=== PATIENT | female | born 1950 | race Caucasian/White ===

== ENCOUNTER 2018-11-24 11:55 | Emergency (ER) | payer MEDICARE, MEDICAID, SELFPAY ==
[2018-11-24 11:56] VITALS: BP 215/123; PULSE 87; RESP 15; TEMP 36.8; O2SAT 99; BMI 26.1
--- NOTE | 2018-11-24 12:37 | EKG12_ITS ---
Test Reason : HYPERTENSION Blood Pressure : / mmHG Vent. Rate : 087 BPM Atrial Rate : 087 BPM P-R Int : 178 ms QRS Dur : 082 ms QT Int : 386 ms P-R-T Axes : 061 -24 054 degrees QTc Int : 464 ms Normal sinus rhythm Possible Left atrial enlargement Borderline ECG Confirmed by STEFFEN NEW, NEELA ([id number]), greeting card editor DIANE BROCK ([id number]) on 11/26/2018 9:20:37 AM Referred By: ALISON Confirmed By:NEELA BOURNE MD
--- NOTE | 2018-11-24 12:37 | RAD_ITS ---
STUDY: X-RAY CHEST REASON FOR EXAM: Female, 68 years old. Hypertension TECHNIQUE: PA and lateral views of the chest. COMPARISON: None. FINDINGS: The lungs are clear and expanded. There is no demonstrated pleural abnormality. Normal size heart. Normal mediastinum and jemal. Normal visualized pulmonary arteries. There is atherosclerotic calcification of the aortic arch with tortuosity. There are diffuse degenerative changes of the visualized thoracic spine. Calcification adjacent to the humeral head may represent calcific tendinitis. There is no demonstrated abnormality of the visualized soft tissue structures of the upper abdomen. RAD/Chest PA and Lateral IMPRESSION: No acute cardiopulmonary process. Chronic changes, as above. Electronically Signed: Oscar Abdi MD at 13:14 EST , Service support ,
--- NOTE | 2018-11-24 12:39 | ED.VISSUMM ---
- ER Visit Summary Date of Service: 11/24/18 Chief Complaint: Hypertension History of Present Illness: The patient is a 68 F who presents with elevated blood pressures that have been getting worse over the past couple days. Patient states she has been checking her blood pressures at home and they have been running in the 160s-180s systolic and 100s-110s diastolic. Patient denies any symptoms. Patient states she has been taking her lisinopril as prescribed. Physical Examination: Vital signs are stable. Patient is afebrile. Patient is in no acute distress. Oral mucosa is pink and moist. Neck is supple. Trachea is midline. There is no JVD noted. Heart was regular rate and rhythm. Lungs are clear and equal bilateral. Abdomen is soft. Bowel sounds are normal. There is no tenderness. There is no guarding noted. Skin is warm dry. Cranial nerves II through XII are intact. There are no focal motor or sensory deficits noted. The remaining physical exam is within normal limits. Test Results: CBC, basic metabolic profile, and troponin were all normal. PA and lateral chest x-ray was obtained. There are chronic changes but no acute process. Emergency Department Course and Treatment: She was given a dose of clonidine here. Repeat blood pressure is 131/85. Patient felt better on reevaluation. Patient was instructed to follow-up with her primary care physician in 1-2 days. Patient understood and was agreeable with plan. All questions were answered. Disposition: Discharge home Impression: Hypertension This note was generated with SeeSpace dictation software. It may contain incorrect words, spelling, and punctuation that were not noted in review of the chart prior to signing ED Disposition - Plan for ED Patient: Disposition: Home or Assisted Living Diagnosis: Hypertension Instructions: ED Hypertension Conf Out Of Control Referrals: Cal Will MD [Primary Care Provider] -
[2018-11-24] MEDS: cloNIDine HCl 0.2 MG Tablet PO (12:55)
[2018-11-24 13:14] LABS: Absolute Lymphocyte Count 1.97 X10^3/ul (0.83-4.51); Basophil# 0.05 X10^3/uL; Basophil% 0.7 % (0-1); Eosinophil# 0.25 X10^3/uL; Eosinophils% 3.3 % (0-5); Hemoglobin 14.1 g/dl (12.0-15.0); Lymphocyte # 1.97 X10^3/ul (4.0); Lymphocyte % 25.9 % (19-41); Mean Corp Hgb Conc 33.6 g/gl (32-36); Mean Corpuscular Hgb 30.7 pg (27.0-32.0); Mean Corpuscular Volume 91.3 fL (81-99); Mean Platelet Vol. 8.9 fl (6.2-12.0); Monocyte# 0.34 X10^3/uL; Monocyte% 4.5 % (0-10); Neutrophil # 4.98 X10^3/uL (2.7-7.7); Neutrophil % 65.5 % (47-70); Platelet Count 350 K/mm3 (150-450); RBC Distribution Width CV 14.2 % (11.6-14.6); RBC Distribution Width SD 47.4 fl (35.1-43.9); White Blood Count 7.6 K/mm3 (4.4-11.0)
[2018-11-24 13:16] LABS: POSITIVE COUNT NO; POSITIVE DIFFERENTIAL NO; POSITIVE MORPHOLOGY NO
[2018-11-24 13:32] LABS: Anion Gap 8 (5-15); BUN 11 mg/dL (7-18); BUN/Creat Ratio 14.5 RATIO (10-20); Chloride 106 mmol/L (98-107); Creatinine, Serum 0.76 mg/dL (0.55-1.02); EST Glomerular Filtration Rate 81 mL/min (>60); Est Glom Filt Rate - Afr Amer 98 mL/min (>60); Estimated Creatinine Clearance 49.12 ml/min; Glucose 122 mg/dL (74-106); Potassium 3.4 mmol/L (3.5-5.1); Sodium Level 136 mmol/L (136-145)
[2018-11-24 14:06] VITALS: BP 131/85; PULSE 72; RESP 18; O2SAT 97
[2018-11-24 14:29] VITALS: BP 120/70; PULSE 74; RESP 18; O2SAT 98
== END 2018-11-24 14:30 | disposition home or self-care (01) ==
PROVIDERS: Emergency Provider Emergency Medicine; Family Provider Family Medicine; PCP Family Medicine
DX: I10 Essential (primary) hypertension (principal); E78.00 Pure hypercholesterolemia, unspecified; F17.210 Nicotine dependence, cigarettes, uncomplicated
CPT/HCPCS: 71046; 80048; 84484; 85025; 93005; 99284; A4216

== ENCOUNTER 2020-01-18 15:39 | Inpatient (IN) | payer MEDICARE, MEDICAID, SELFPAY ==
[2020-01-18] VITALS (8 sets, daily range): BP systolic 146–178; BP diastolic 82–97; PULSE 87–109; RESP 16–18; TEMP 36.1–37.1; O2SAT 96–99; BMI 24.7; BMI 24.1
--- NOTE | 2020-01-18 15:55 | EKG12_ITS ---
Test Reason : Blood Pressure : / mmHG Vent. Rate : 092 BPM Atrial Rate : 092 BPM P-R Int : 188 ms QRS Dur : 090 ms QT Int : 378 ms P-R-T Axes : 071 -28 060 degrees QTc Int : 467 ms Normal sinus rhythm Nonspecific ST abnormality Abnormal ECG Confirmed by STEFFEN NEW, NEELA ([id number]), mapping editor DIANE BROCK ([id number]) on 01/19/2020 8:25:42 AM Referred By: JENNYFER Confirmed By:NEELA BOURNE MD
[2020-01-18] MEDS: 0.9% Normal Saline 1,000 ML 125 ML IV (16:16)
[2020-01-18] MEDS: Ondansetron 4 MG/2 ML Vial IV (16:16)
[2020-01-18 16:18] LABS: Absolute Lymphocyte Count 1.69 X10^3/uL (0.83-4.51); Absolute Neutrophil Count 5.1 X10^3/uL (2.0-7.7); Basophil# 0.05 X10^3/uL; Basophil% 0.7 % (0-1); Eosinophil# 0.14 X10^3/uL; Eosinophils% 1.8 % (0-5); Hematocrit 36.5 % (37-47); Hemoglobin 12.9 g/dL (12.0-15.0); Lymphocyte # 1.69 X10^3/ul (4.0); Lymphocyte % 22.2 % (19-41); Mean Corp Hgb Conc 35.3 g/dL (32-36); Mean Corpuscular Hgb 29.7 pg (27.0-32.0); Mean Corpuscular Volume 84.1 fL (81-99); Mean Platelet Vol. 7.8 fl (6.2-12.0); Monocyte# 0.58 X10^3/uL; Monocyte% 7.6 % (0-10); NRBC Flagged by Analyzer 0 % (0-5); Neutrophil # 5.13 X10^3/uL (2.7-7.7); Neutrophil % 67.4 % (47-70); Platelet Count 404 K/mm3 (150-450); RBC Distribution Width CV 12.8 % (11.6-14.6); RBC Distribution Width SD 39.3 fl (35.1-43.9); Red Blood Count 4.34 M/mm3 (4.2-5.4); White Blood Count 7.6 K/mm3 (4.4-11.0)
[2020-01-18 16:26] LABS: Bacteria 0 SEEN /hpf (None Seen); Mucous, Urine 0 SEEN /hpf (<or=2+); Squamous Epithelial Cells - UA 0 SEEN /hpf (5-10); White Blood Cells 0 SEEN /hpf (0-5)
[2020-01-18 16:27] LABS: Color, Urine Yellow (Yellow); Glucose, Dipstick Normal (Normal); Ketone-Dipstick Negative (Negative); Leukocyte Esterase-Dipstick Negative /ul (Negative); Nitrite-Dipstick Negative (Negative); Occult Blood-Urine 10 /ul (Negative); Protein-Dipstick Negative (Negative); Urine Bilirubin Dipstick Negative (Negative); Urine Clarity Clear (Clear); Urine Urobilinogen Normal (Normal)
[2020-01-18 16:33] LABS: Red Blood Cells-Urine 0-5 SEEN /hpf (0-5)
[2020-01-18 16:47] LABS: ALB/GLOB Ratio 1.1 RATIO (0.9-2.4); AST(SGOT) 23 U/L (15-37); Alanine Aminotransfer ALT/SGPT 28 U/L (13-56); Albumin, Serum 4.1 g/dL (3.2-5.0); Alkaline Phosphatase 96 U/L (45-117); Anion Gap 10 (5-15); BUN 11 mg/dL (7-18); BUN/Creat Ratio 13.7 RATIO (10-20); Calcium,Total 9.1 mg/dL (8.5-10.1); Chloride 85 mmol/L (98-107); EST Glomerular Filtration Rate 75 mL/min (>60); Est Glom Filt Rate - Afr Amer 91 mL/min (>60); Estimated Creatinine Clearance 63.01 ml/min; Globulin 3.8 g/dL (2.2-4.2); Glucose 110 mg/dL (74-106); Lipase 292 U/L (73-393); Protein, Total 7.9 g/dL (6.4-8.2); Sodium Level 119 mmol/L (136-145)
--- NOTE | 2020-01-18 17:02 | ED.DCSUM_ITS ---
- ER Visit Summary Date of Service: 01/18/20 Chief Complaint: [Nausea, generalized weakness] History of Present Illness: The patient is a 69 F [presents to the emergency department with complaint of not feeling well for about a week. Patient states that she was having a hard time urinating about a week and a half ago and went to urgent care where they checked a urine and initially they did not think she was infected but then called her back and started her on Cipro for suspected urinary tract infection. Patient states that she took about 5 days worth of Cipro. Since the Cipro started she has been nauseated and having heartburn. She denies any abdominal pain. She states she intermittently will have a sharp stabbing pain kind of in the right lower ribs that she attributes to muscle cramping. She denies any urinary symptoms currently. She denies any fever. She denies cough. Patient has history of hypertension. Patient states that she was started on hydrochlorothiazide about 2 months ago.] Physical Examination: [HEENT-PERRLA, EOMI. Cranial nerves II through XII g rossly intact. TMs clear. Mucous membranes moist. No adenopathy. Cardiovascular-regular rate and rhythm without murmur or ectopy Lungs-clear to auscultation, chest wall stable without crepitus or subcu emphysema Abdomen-normoactive bowel sounds, soft, nontender, no rebound or rigidity, no peritoneal signs. Extremities-intact ?4, normal range of motion, normal pulses, atraumatic] Test Results: [EKG obtained arrival shows sinus rhythm with a ventricular rate of 92 bpm with some nonspecific ST changes noted. CBC with differential showed a white count 7.6, hemoglobin 12.9, hematocrit 36, platelets 404. Chemistries showed a sodium of 119, potassium 3.0, chloride 85, CO2 24, glucose 110. LFTs were normal. Lipase was 292. Troponin was less than 0.015.] Emergency Department Course and Treatment: [Patient had an IV line established. She was treated with normal saline at 125 cc an hour. Patient was given 40 mEq of potassium chloride p.o.] Patient given 4 mg of Zofran IV. Treatment Plan: [Admit for correction of sodium] Disposition: [Admit] Impression: [Hyponatremia Hypokalemia Generalized weakness Nausea] This note was generated with Nimble TVation software. It may contain incorrect words, spelling, and punctuation that were not noted in review of the chart prior to signing ED Disposition - Plan for ED Patient: Referrals: Cal Will MD [Primary Care Provider] -
--- NOTE | 2020-01-18 17:34 | HP.PCM_ITS ---
Problem List (1) Hypokalemia Status: Acute (2) Hyponatremia Status: Acute (3) Hyperlipidemia Status: Chronic (4) Hypertension Status: Chronic History of Present Illness Date of Admission: 01/18/20 Chief Complaint: Nausea, weakness. The patient is a 69 year old F with past medical history as mentioned above presented to the emergency room because of nausea and weakness. Redness started around 1 week ago with nausea, intermittent, without vomiting, associated with weakness and minimal heartburn and without aggravating or relieving factors. Around that time, she had a history of difficulty urinating and she went to urgent care where she had urinalysis and she was given prescription for ciprofloxacin for presumed UTI. She took ciprofloxacin for 5 days and since then, she has been having this nausea and heartburn. She denied abdominal pain, diarrhea, constipation, fever or chills. She denied any urinary symptoms at this time. She denied cough or sputum production. She denied chest pain or shortness of breath. She mentioned that around beginning of November,, her dose of hydrochlorothiazide was increased from 12.5 mg p.o. daily to 25 mg p.o. daily because of elevated blood pressure. She states that she has been taking HCTZ for long time but the dose was increased around beginning of November this year. In the emergency department, her blood pressure was slight elevated, other vital signs were stable. Routine blood work was remarkable for sodium of 119 and potassium of 3, otherwise normal. Lipase and LFT were normal. EKG revealed normal sinus rhythm with nonspecific ST, T wave changes which are chronic and no acute ischemic changes. Troponin was negative. She is being admitted for severe hyponatremia and hypokalemia for evaluation and treatment. 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 Denies: Chills, Fever Eyes: Denies: Blurred vision, Double vision, Drainage, Redness HEENT: Denies: Difficulty Hearing, Ear Pain, Eye Pain, Nasal Congestion, Sore Throat Cardiovascular: Denies: Chest Pain, Chest Pressure, Chest Tightness, Heaviness, Light Headedness, Palpitations, Syncope Respiratory: Denies: Cough, Pleuritic Pain, Shortness of Breath, Sputum production, Wheezing Gastrointestinal: Reports: Dyspepsia, Nausea. Denies: Abdominal Pain, Constipation, Diarrhea, Hematochezia, Melena, Vomiting Genitourinary: Denies: Dysuria, Frequency, Hematuria Musculoskeletal: Denies: Arm Pain, Back Pain, Foot Pain Skin: Denies: Dryness, Rash Neurological: Denies: Balance problems, Double vision, Change in Speech, Slurred speech, Headaches, Incoordination, Numbness, Tingling Psychiatric: Denies: Anxiety, Depression Endocrine: Denies: Change in Body Habitus, Polydipsia, Polyuria VTE Information - Inpt Only VTE Present on Admission: No VTE Mechan Device Prophylaxis: None VTE Pharm Prophylaxis ordered?: Yes Patient Problems: Active and Suspected Problems Hypokalemia (Acute) Hyponatremia (Acute) - Physical Exam Vitals/I&O's: Vital Signs Temp Pulse Resp BP Pulse Ox 97.0 F L 103 H 18 157/97 H 97 01/18/20 15:40 01/18/20 15:40 01/18/20 15:40 01/18/20 15:40 01/18/20 15:40 Oxygen Delivery Method Room Air Weight: 153 lb 3.54 oz Body Mass Index (BMI) 24.7 General: Alert, Oriented x3, Cooperative, No apparent distress HEENT: Atraumatic, PERRLA, EOMI, Normocephalic Oral: Moist Mucosa, No Gingival or Mucosal Lesions/ Ulcerations Neck: Supple, No JVD, Negative Carotid Bruits, Trachea Midline, Thyroid Normal Size and Texture Lungs: Clear to auscultation, Normal air movement, No rhonchi, No wheeze, No rales Cardiovascular: Regular rate, Regular Rhythm, Normal S1, Normal S2, No murmurs, PMI Normal Abdomen: Bowel Sounds Present, Soft, Non Tender, Non-Distended, No Hepato- splenomegaly Extremities: No clubbing, No cyanosis, No edema Skin: No rashes, No breakdown Lymphatic: No Cervical, Supraclavicular, or Inguinal Adenopathy Neurological: Cranial nerves II-XII grossly intact, Motor Exam 5/5 strength throughout Psych/Mental Status: Normal Affect, Appropriate, Alert and oriented to time, place, person, mood and affect Laboratory Results 01/18/20 14:10: WBC 7.6, RBC 4.34, Hgb 12.9, Hct 36.5 L, MCV 84.1, MCH 29.7, MCHC 35.3, RDW Std Deviation 39.3, RDW Coeff of Abhilash 12.8, Plt Count 404, MPV 7.8, Immature Gran % (Auto) 0.300, Neut % (Auto) 67.4, Lymph % (Auto) 22.2, [place] % (Auto) 7.6, Eos % (Auto) 1.8, Baso % (Auto) 0.7, Absolute Neuts (auto) 5.1, Absolute Lymphs (auto) 1.69, Nucleated RBC % 0 01/18/20 14:10: Sodium 119 L*, Potassium 3.0 L, Chloride 85 L, Carbon Dioxide 24.0, Anion Gap 10, BUN 11, Creatinine 0.80, Estim Creat Clear Calc 63.01, Est GFR (MDRD) Af Amer 91, Est GFR (MDRD) Non-Af 75, BUN/Creatinine Ratio 13.7, Glucose 110 H, Calcium 9.1, Total Bilirubin 0.30, AST 23, ALT 28, Alkaline Phosphatase 96, Troponin I < 0.015, Total Protein 7.9, Albumin 4.1, Globulin 3.8, Albumin/Globulin Ratio 1.1, Lipase 292 01/18/20 16:00: Urine Color Yellow, Urine Clarity Clear, Urine pH 7.0, Ur Specific [place] 1.010, Urine Protein Negative, Urine Glucose (UA) Normal, Urine Ketones Negative, Urine Occult Blood 10 H, Urine Nitrite Negative, Urine Bilirubin Negative, Urine Urobilinogen Normal, Ur Leukocyte Esterase Negative, Urine RBC 0-5 SEEN, Urine WBC 0 SEEN, Ur Squamous Epith Cells 0 SEEN, Urine Bacteria 0 SEEN, Urine Mucus 0 SEEN Current Medications Sodium Chloride () 1,000 mls @ 125 mls/hr IV .Q8H KRISTYN Last Admin: 01/18/20 16:16 Dose: 125 mls/hr Documented by: Assessment/Plan All Active Problems Hypokalemia (Acute) Hyponatremia (Acute) This is a 69 years old female patient presented to the emergency room because of nausea with weakness and she was found to have severe hyponatremia and hypokalemia and she is being admitted for evaluation and treatment. #1 severe hyponatremia/hypokalemia: Patient has been on HCTZ 12.5 mg p.o. daily which was increased to 25 mg p.o. daily beginning November,. This is probably the reason why she had this severe hyponatremia and hypokalemia. Other etiology cannot be ruled out But less likely. LFT and lipase were normal. Patient looks clinically euvolemic. [facility]metry, IV fluids with normal saline with potassium supplement, IV antiemetics, IV Protonix twice daily, check serum magnesium, TSH, chest x-ray AP and lateral as patient is a chronic smoker, urine sodium, urine potassium, urine chloride, urine creatinine, plasma and serum osmolality, hold HCTZ, repeat CBC and BMP tomorrow morning. #2 hypertension: Blood pressures like elevated, continue lisinopril, start IV hydralazine PRN, discontinue HCTZ. #3 hyperlipidemia: Continue statins. #4 DVT prophylaxis: Subcu Lovenox. This note was generated with Anpro21 dictation software. It may contain incorrect words, spelling, and punctuation that were not noted in checking the note before signing. Inpatient E&M: 88818 Init Hosp L2
[2020-01-18 18:30] LABS: Magnesium 1.8 mg/dL (1.6-2.6); Thyroid Stim Hormone (TSH) 3.77 uIU/mL (0.358-3.74)
[2020-01-18] MEDS: 0.9% Saline Lock 10 ML Syringe IV (18:39)
--- NOTE | 2020-01-18 18:55 | RAD_ITS ---
STUDY: X-RAY CHEST REASON FOR EXAM: Female, 69 years old. Hyponatremia, smoker TECHNIQUE: PA and lateral views of the chest. COMPARISON: November 24, 2018 FINDINGS: The lungs remain hyperinflated. There is a stable nodularity projecting over the left midlung with a radiolucent margin, likely dermal in nature. There is no new focal consolidation. Normal size heart. Normal mediastinum and jemal. Normal visualized pulmonary arteries. Normal visualized aortic arch and descending thoracic aorta. There are diffuse degenerative changes of the visualized thoracic spine. Normal visualized ribs, clavicles, and shoulders. There is no demonstrated abnormality of the visualized soft tissue structures of the upper abdomen. RAD/Chest PA and Lateral IMPRESSION: Stable examination demonstrating no acute cardiopulmonary process. Electronically Signed: Milady Fuentes MD at 19:16 EDT Tel , Service support ,
[2020-01-18 19:18] LABS: Osmolality, Serum 248 mOsm/KG (280-301)
[2020-01-18] MEDS: Pravastatin 40 MG Tablet PO (20:20)
[2020-01-18 20:42] LABS: Urine Chloride 66 mmol/L (Not Establ.); Urine Sodium 60 mmol/L (Not Establ.)
[2020-01-18 20:54] LABS: Osmolality, Urine 242 mOsm/KG
[2020-01-19] VITALS (7 sets, daily range): BP systolic 122–155; BP diastolic 62–90; PULSE 82–95; RESP 16–18; TEMP 36.8–36.9; O2SAT 97–99
[2020-01-19 07:10] LABS: Absolute Lymphocyte Count 1.02 X10^3/uL (0.83-4.51); Basophil# 0.05 X10^3/uL; Basophil% 0.8 % (0-1); Eosinophil# 0.07 X10^3/uL; Eosinophils% 1.1 % (0-5); Hematocrit 35.4 % (37-47); Hemoglobin 12.3 g/dL (12.0-15.0); Lymphocyte # 1.02 X10^3/ul (4.0); Lymphocyte % 15.6 % (19-41); Mean Corp Hgb Conc 34.7 g/dL (32-36); Mean Corpuscular Hgb 30.2 pg (27.0-32.0); Mean Platelet Vol. 8.1 fl (6.2-12.0); Monocyte% 6.1 % (0-10); NRBC Flagged by Analyzer 0 % (0-5); Neutrophil # 4.97 X10^3/uL (2.7-7.7); Neutrophil % 75.9 % (47-70); Platelet Count 429 K/mm3 (150-450); RBC Distribution Width SD 40.9 fl (35.1-43.9); Red Blood Count 4.07 M/mm3 (4.2-5.4); White Blood Count 6.5 K/mm3 (4.4-11.0)
[2020-01-19 07:29] LABS: Anion Gap 8 (5-15); BUN 7 mg/dL (7-18); BUN/Creat Ratio 10.8 RATIO (10-20); Calcium,Total 8.7 mg/dL (8.5-10.1); Chloride 97 mmol/L (98-107); Creatinine, Serum 0.65 mg/dL (0.55-1.02); EST Glomerular Filtration Rate 97 mL/min (>60); Est Glom Filt Rate - Afr Amer 117 mL/min (>60); Estimated Creatinine Clearance 50.41 ml/min; Glucose 104 mg/dL (74-106); Potassium 3.8 mmol/L (3.5-5.1); Sodium Level 127 mmol/L (136-145)
[2020-01-19] MEDS: Lisinopril 40 MG Tablet PO (08:38)
[2020-01-19 08:53] LABS: Free T3 2.8 pg/mL (2.18-3.98)
[2020-01-19] MEDS: Pantoprazole Sodium 40 MG Tablet PO ×2 (10:00→20:27)
--- NOTE | 2020-01-19 11:31 | CASEMGMT ---
Assessment- SW completed bedside assessment with patient. SW did confirm contact information as well as her contact that is listed. She does not want anyone else listed. Living situation- Patient lives with her brother in a 1 story home. PCP: Dr Will Specialists: None Pharmacy: [facility] DME: None ADL's/IADL's: Independent in everything. Patient said she manages her meds, bathes herself, drives etc. Past SNF/rehab: None Past HH: None LW: No POA: No Plan: Patient said she will not need anything at discharge. She wishes she could leave today. 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
[2020-01-19] MEDS: 0.9% Saline Lock 10 ML Syringe IV (11:52)
--- NOTE | 2020-01-19 12:44 | PCM.PN.HOSP ---
Patient Problems: Active and Suspected Problems Hypokalemia (Acute) Hyponatremia (Acute) Reason for Visit: Follow-up on hyponatremia Subjective: Patient seen and examined. She feels improved. Denies any complains. Vitals/I&O's: Vital Signs Temp Pulse Resp BP Pulse Ox 98.2 F 82 18 145/77 H 97 01/19/20 09:58 01/19/20 09:58 01/19/20 09:58 01/19/20 09:58 01/19/20 09:58 Oxygen Delivery Method Room Air Weight: 67.8 kg Body Mass Index (BMI) 24.1 Intake and Output for Last 24 Hours 01/17/20 01/18/20 01/19/20 23:59 23:59 23:59 Intake Total 376.67 / 376.67 1496.67 / 1496.67 Output Total 1900 / 1900 Balance 376.67 / -523.33 -403.33 / -403.33 General: Alert, Oriented x3, Cooperative, No apparent distress HEENT: Atraumatic, PERRLA, EOMI, Normocephalic Oral: Moist Mucosa Neck: Supple Lungs: Clear to auscultation, Normal air movement Cardiovascular: Regular rate, Regular Rhythm, Normal S1, Normal S2, No murmurs Abdomen: Bowel Sounds Present, Soft, Non Tender, Non-Distended, No Hepato-splenomegaly Extremities: No edema Skin: No rashes Musculoskeletal: No Tenderness to Palpation of Joints or Extremities Lymphatic: No Cervical, Supraclavicular, or Inguinal Adenopathy Neurological: Cranial nerves II-XII grossly intact, Neuro grossly intact Psych/Mental Status: Normal Affect, Appropriate Laboratory Results 01/18/20 14:10: WBC 7.6, RBC 4.34, Hgb 12.9, Hct 36.5 L, MCV 84.1, MCH 29.7, MCHC 35.3, RDW Std Deviation 39.3, RDW Coeff of Abhilash 12.8, Plt Count 404, MPV 7.8, Immature Gran % (Auto) 0.300, Neut % (Auto) 67.4, Lymph % (Auto) 22.2, [place] % (Auto) 7.6, Eos % (Auto) 1.8, Baso % (Auto) 0.7, Absolute Neuts (auto) 5.1, Absolute Lymphs (auto) 1.69, Nucleated RBC % 0 01/18/20 14:10: Sodium 119 L*, Potassium 3.0 L, Chloride 85 L, Carbon Dioxide 24.0, Anion Gap 10, BUN 11, Creatinine 0.80, Estim Creat Clear Calc 63.01, Est GFR (MDRD) Af Amer 91, Est GFR (MDRD) Non-Af 75, BUN/Creatinine Ratio 13.7, Glucose 110 H, Calcium 9.1, Total Bilirubin 0.30, AST 23, ALT 28, Alkaline Phosphatase 96, Troponin I < 0.015, Total Protein 7.9, Albumin 4.1, Globulin 3.8, Albumin/Globulin Ratio 1.1, Lipase 292 01/18/20 14:10: Magnesium 1.8, TSH 3.77 H 01/18/20 16:00: Urine Color Yellow, Urine Clarity Clear, Urine pH 7.0, Ur Specific [place] 1.010, Urine Protein Negative, Urine Glucose (UA) Normal, Urine Ketones Negative, Urine Occult Blood 10 H, Urine Nitrite Negative, Urine Bilirubin Negative, Urine Urobilinogen Normal, Ur Leukocyte Esterase Negative, Urine RBC 0-5 SEEN, Urine WBC 0 SEEN, Ur Squamous Epith Cells 0 SEEN, Urine Bacteria 0 SEEN, Urine Mucus 0 SEEN 01/18/20 16:33: Serum Osmolality 248 L 01/18/20 20:00: Urine Osmolality 242, Ur Random Sodium 60, Urine Creatinine 20.50, Urine Potassium 22.0, Urine Chloride 66 01/19/20 05:45: Sodium 127 L, Potassium 3.8, Chloride 97 L, Carbon Dioxide 22.0, Anion Gap 8, BUN 7, Creatinine 0.65, Estim Creat Clear Calc 50.41, Est GFR (MDRD) Af Amer 117, Est GFR (MDRD) Non-Af 97, BUN/Creatinine Ratio 10.8, Glucose 104, Calcium 8.7 01/19/20 05:45: WBC 6.5, RBC 4.07 L, Hgb 12.3, Hct 35.4 L, MCV 87.0, MCH 30.2, MCHC 34.7, RDW Std Deviation 40.9, RDW Coeff of Abhilash 13.0, Plt Count 429, MPV 8.1, Immature Gran % (Auto) 0.500, Neut % (Auto) 75.9 H, Lymph % (Auto) 15.6 L, Emm[place] % (Auto) 6.1, Eos % (Auto) 1.1, Baso % (Auto) 0.8, Absolute Neuts (auto) 5.0, Absolute Lymphs (auto) 1.02, Nucleated RBC % 0 01/19/20 05:45: Free T4 1.30, Free T3 pg/dL 2.8 Current Medications Acetaminophen (Tylenol) 650 mg PO Q6H PRN PRN PRN Reason: Pain Score 1-10/Temp > 100.7 F Enoxaparin Sodium (Lovenox) 40 mg SC DAILY [facility] [place] Last Admin: 01/19/20 10:01 Dose: Not Given Documented by: Hydralazine HCl (Apresoline Iv) 10 mg IV Q6H PRN PRN PRN Reason: for SBP>160 Lisinopril (Zestril) 40 mg PO DAILY [facility] [place] Last Admin: 01/19/20 08:38 Dose: 40 mg Documented by: Ondansetron HCl (Zofran) 4 mg IV Q8H PRN PRN PRN Reason: NAUSEA/VOMITING Pantoprazole Sodium (Protonix) 40 mg PO BID [facility] [place] Last Admin: 01/19/20 10:00 Dose: 40 mg Documented by: Pravastatin Sodium (Pravachol) 40 mg PO QHS [facility] Last Admin: 01/18/20 20:20 Dose: 40 mg Documented by: Promethazine HCl (Phenergan) 6.25 mg IV Q6H PRN PRN PRN Reason: NAUSEA/VOMITING Senna/Docusate Sodium (Senokot-S, Maria L-Colace) 2 tablet PO BID PRN PRN PRN Reason: Constipation Sodium Chloride () 10 - 40 ml IV UD PRN PRN Reason: SALINE FLUSH Last Admin: 01/19/20 11:52 Dose: 10 ml Documented by: STROKE Vital Signs/Narrative: Vital Signs Temp Pulse Resp BP Pulse Ox 01/19/20 09:58 98.2 F 82 18 145/77 H 97 01/19/20 09:46 89 Medical Necessity - Tobacco Use Smoking Status: Light Smoker (<10/day) Tobacco Use: Cigarettes Assessment/Plan All Active Problems Hypokalemia (Acute) Hyponatremia (Acute) 1. Severe hyponatremia, hypotonic, euvolemic, likely also secondary to HCTZ use Urine osm is 242, FeNa 2%; Na 127 from 119 Continue to hold HCTZ, will discontinue IVF, repeat labs in am 2. Elevated TSH, normal T3/T4, likely subclinical hypothyroidism, Will need to be repeated in outpatient in 6-8 weeks 3. Hypertension, controlled, will continue on Lisinopril, Will continue to monitor with prn hydralazine 4. Hyperlipidemia, on statin 5. DVT PPx- Lovenox SC Inpatient E&M: 71634 Subs Hosp L2
--- NOTE | 2020-01-19 16:26 | CHAPLAIN ---
Type of Pastoral Visit _x__ Initial Visit ___ Follow-up Visit ___ On-call Visit ___ General Patient Visit ___ Spiritual Assessment ___ Family Conference ___ Bereavement ___ Rapid Response ___ Code Blue ___ Other (describe below) Pastoral Care Referral From _x__ Patient ___ Family ___ Nurse ___ Physician ___ Forming Mill Operator ___ Retail Store Assistant ___ Other (describe below) Sacrament/Intervention _x__ Active listening ___ Anointing ___ Synagogue ___ Bereavement ___ Communion _x__ Lydia exploration ___ _x__ Life review _x__ Prayer ___ Reconciliation ___ Sacrament of Sick _x__ Supportive presence ___ Wedding ___ Other (describe below) Pastoral Comments
[2020-01-19] MEDS: Pravastatin 40 MG Tablet PO (17:56)
[2020-01-19] MEDS: MELATONIN 3 MG TABLET PO (20:29)
[2020-01-20 02:25] VITALS: BP 146/82; PULSE 91; RESP 16; TEMP 36.6; O2SAT 97
[2020-01-20 07:46] LABS: Anion Gap 6 (5-15); BUN 10 mg/dL (7-18); BUN/Creat Ratio 13.4 RATIO (10-20); Calcium,Total 9.3 mg/dL (8.5-10.1); Chloride 98 mmol/L (98-107); Creatinine, Serum 0.74 mg/dL (0.55-1.02); EST Glomerular Filtration Rate 82 mL/min (>60); Est Glom Filt Rate - Afr Amer 99 mL/min (>60); Estimated Creatinine Clearance 50.41 ml/min; Glucose 96 mg/dL (74-106); Potassium 3.7 mmol/L (3.5-5.1); Sodium Level 128 mmol/L (136-145)
[2020-01-20 07:51] VITALS: O2SAT 96
[2020-01-20 08:32] VITALS: BP 140/86; PULSE 94; RESP 18; TEMP 36.8; O2SAT 98
[2020-01-20] MEDS: Lisinopril 40 MG Tablet PO (08:40)
[2020-01-20] MEDS: Pantoprazole Sodium 40 MG Tablet PO (08:40)
--- NOTE | 2020-01-20 09:31 | DCINST_ITS ---
- Discharge Diagnoses Current Active Problems: Current Active and Chronic Problems Hypokalemia (Acute) Hyponatremia (Acute) Hyperlipidemia (Chronic) Hypertension (Chronic) Reason(s) for Visit for Discharge Instructions: Hyponatremia You will use the following diet at home:: Cardiac Your food should be the consistency of: Regular Your liquids should be the consistency of: Regular/Thin Discharge Activity: Return to Normal Activity Additional Instructions: Take note of changes to your medications; your hydrochlorothiazide has been stopped. You are to follow a fluid restriction for a total of 1500mls. Follow up with Dr. Will to have your blood work repeated in 2-3 days. Keep a log of your BP and let your primary care doctor know when your blood pressure is more than 160/90. Allergies/Adverse Reactions: Allergies tramadol Allergy (Verified 01/18/20 15:44) Other Medications to take at Discharge Lisinopril [Zestril] 40 mg PO DAILY 09/11/14 Pravastatin [Pravachol] 40 mg PO QHS 09/11/14 Primary Care Physician: Cal Will MD [Primary Care Provider] - Please follow up with your Primary Care Physician in: within 1-2 weeks Test Results: Test results from this visit will be discussed in further detail at your follow- up appointment, if applicable. Proposed Discharge Date: 01/20/20
--- NOTE | 2020-01-20 09:38 | DS.PCM_ITS ---
Discharge Date and Diagnosis Date of Admission: 01/18/20 Date of Discharge: 01/20/20 - Primary Discharge Diagnosis Active and Suspected Problems Severe hypotonic hyponatremia Hypokalemia - Secondary Discharge Diagnosis Chronic Problems Hyperlipidemia (Chronic) Hypertension (Chronic) Hospital Course and Treatment Imaging Results: Clinical Impression(s) from Imaging Studies Chest X-Ray 01/18/20 18:55 IMPRESSION: Stable examination demonstrating no acute cardiopulmonary process. Electronically Signed: Milady Fuentes MD at 19:16 EDT Tel , Service support , None Operations: None Procedures: None Summary of Care Provided: The patient is a 69 year old F past medical history of hypertension, hyperlipidemia who recently had her hydrochlorothiazide dose increased from 12.5 mg daily to 25 mg daily comes in with nausea and vomiting. Patient has also recently been treated for UTI with Cipro. She was found to have severe hyponatremia with sodium of 119. Potassium was also low at 3.0. She was also dehydrated on exam. She received IV fluids with improvement in her sodium to 127 the next day. 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 Patient was kept off of her hydrochlorothiazide. She was kept overnight and next day. Her sodium was 127. She was discharged to follow-up with Dr. Will on fluid restriction 1500 mils per day. Potassium was normal at the time of discharge. Her management at discharge was discussed with Dr. Will on phone, patient will have repeat blood work done in 2 days. Subjective: On the day of discharge, patient was seen and examined. No new complains Objective: Physical exam: General: Alert, Oriented x3, Cooperative, No apparent distress HEENT: Atraumatic, PERRLA, EOMI, Normocephalic Oral: Moist Mucosa Neck: Supple Lungs: Clear to auscultation, Normal air movement Cardiovascular: Regular rate, Regular Rhythm, Normal S1, Normal S2, No murmurs Abdomen: Bowel Sounds Present, Soft, Non Tender, Non-Distended, No Hepato- splenomegaly Extremities: No edema Skin: No rashes Musculoskeletal: No Tenderness to Palpation of Joints or Extremities Lymphatic: No Cervical, Supraclavicular, or Inguinal Adenopathy Neurological: Cranial nerves II-XII grossly intact, Neuro grossly intact Psych/Mental Status: Normal Affect, Appropriate - Physical Exam Vitals/I&O's: Vital Signs Temp Pulse Resp BP Pulse Ox 98.2 F 94 18 140/86 H 98 01/20/20 08:32 01/20/20 08:32 01/20/20 08:32 01/20/20 08:32 01/20/20 08:32 Oxygen Delivery Method Room Air Weight: 67.8 kg Body Mass Index (BMI) 24.1 Intake and Output for Last 24 Hours 01/18/20 01/19/20 01/20/20 23:59 23:59 23:59 Intake Total 376.67 / 376.67 1496.67 / 1496.67 Output Total 3800 / 3800 Balance 376.67 / -523.33 -2303.33 / -2303.33 Laboratory Results 01/20/20 07:00: Sodium 128 L, Potassium 3.7, Chloride 98, Carbon Dioxide 24.0, Anion Gap 6, BUN 10, Creatinine 0.74, Estim Creat Clear Calc 50.41, Est GFR (MDRD) Af Amer 99, Est GFR (MDRD) Non-Af 82, BUN/Creatinine Ratio 13.4, Glucose 96, Calcium 9.3 Current Medications Acetaminophen (Tylenol) 650 mg PO Q6H PRN PRN PRN Reason: Pain Score 1-10/Temp > 100.7 F Enoxaparin Sodium (Lovenox) 40 mg SC DAILY [facility] Last Admin: 01/20/20 08:39 Dose: Not Given Documented by: Hydralazine HCl (Apresoline Iv) 10 mg IV Q6H PRN PRN PRN Reason: for SBP>160 Lisinopril (Zestril) 40 mg PO DAILY [facility] Last Admin: 01/20/20 08:40 Dose: 40 mg Documented by: Melatonin (Melatonin) 3 mg PO QHS PRN PRN Reason: INSOMNIA Last Admin: 01/19/20 20:29 Dose: 3 mg Documented by: Ondansetron HCl (Zofran) 4 mg IV Q8H PRN PRN PRN Reason: NAUSEA/VOMITING Pantoprazole Sodium (Protonix) 40 mg PO BID [facility] Last Admin: 04/14/20 08:40 Dose: 40 mg Documented by: Pravastatin Sodium (Pravachol) 40 mg PO QHS [facility] Last Admin: 01/19/20 17:56 Dose: 40 mg Documented by: Senna/Docusate Sodium (Senokot-S, Maria L-Colace) 2 tablet PO BID PRN PRN PRN Reason: Constipation Sodium Chloride () 10 - 40 ml IV UD PRN PRN Reason: SALINE FLUSH Last Admin: 01/19/20 11:52 Dose: 10 ml Documented by: Discharge Diet: Low fat/ Low Cholesterol, 2000 mg Sodium Diet Discharge Activity: Return to Normal Activity Home Medications: Medications to take at Discharge Lisinopril [Zestril] 40 mg PO DAILY 09/11/14 Pravastatin [Pravachol] 40 mg PO QHS 09/11/14 Primary Care Physician: Cal Will MD [Primary Care Provider] - Please follow up with your Primary Care Physician in: within 1-2 weeks Disposition: Home Minutes spent on discharge:: 40 Patient Condition:: Stable Medical Necessity - Tobacco Use Smoking Status: Light Smoker (<10/day) Tobacco Use: Cigarettes Meaningful Use Info Meaningful Use Diagnoses (Choose all that apply): None applicable Inpatient E&M: 88524 Disch Hosp
== END 2020-01-20 11:15 | disposition home or self-care (01) | DRG 645 ==
LOC: ED 16:44 → PCU 17:44
PROVIDERS: Admitting Provider Hospitalist; Emergency Provider Emergency Medicine; PCP Family Medicine; Visit Provider Internal Medicine
DX: E22.2 Syndrome of inappropriate secretion of antidiuretic hormone (principal); E87.6 Hypokalemia; I10 Essential (primary) hypertension; E78.5 Hyperlipidemia, unspecified; E03.9 Hypothyroidism, unspecified; F17.210 Nicotine dependence, cigarettes, uncomplicated; Z79.899 Other long term (current) drug therapy; Z87.440 Personal history of urinary (tract) infections
CPT/HCPCS: 36415; 71046; 80048; 80053; 81001; 82436; 82570; 83690; 83735; 83930; 83935; 84133; 84300; 84439; 84443; 84481; 84484; 85025; 93005; 96361; 96374; 99251; 99284; 99406; J7030; A4216; G0463; J2405

== ENCOUNTER 2023-02-09 15:23 | Emergency (ER) | payer MEDICARE, MEDICAID, SELFPAY ==
[2023-02-09 15:25] VITALS: BP 182/98; PULSE 107; RESP 18; TEMP 36.4; O2SAT 97; BMI 25.4
--- NOTE | 2023-02-09 16:14 | CT_ITS ---
INDICATION: Left submandib swelling EXAMINATION: CT NECK - CT Soft Tissue Neck W/O Contrast Injection TECHNIQUE: Multiple axial images were obtained of the neck. A radiation dose optimization technique was used for this scan. IV Contrast dosage and agent: None. RADIATION DOSAGE (If Supplied By Facility): CTDIvol = ( 12.96 ) mGy, DLP = ( 385.21 ) mGycm COMPARISON: None FINDINGS: NASOPHARYNX: Unremarkable. SUPRAHYOID NECK: Left more than right pharyngeal tonsillar calcifications. Otherwise unremarkable oropharynx, oral cavity, parapharyngeal space, and retropharyngeal space. INFRAHYOID NECK: Unremarkable larynx, hypopharynx, and supraglottis. THYROID: No focal lesions. SALIVARY GLANDS: Mildly swollen left submandibular gland with surrounding inflammatory stranding. LYMPH NODES: No cervical or supraclavicular lymphadenopathy. VASCULAR STRUCTURES: Unremarkable. VISUALIZED PORTIONS OF THE ORBITS, PARANASAL SINUSES, MASTOID AIR CELLS AND SKULL BASE: Small left maxillary sinus effusion. Bilateral ocular lens replacements. BONES: Unremarkable. THORACIC INLET: Clear lung apices. CT/Soft Tissue Neck without Contr IMPRESSION: Left submandibular sialoadenitis with surrounding inflammatory stranding. No drainable fluid collection. Electronically Signed: Woodrow Arroyo MD at 16:55 EDT ,
--- NOTE | 2023-02-09 16:16 | EDS_ITS ---
HPI History of Present Illness Chief Complaint: Other, Pain/Inj Informant: patient Onset/Context/Timing Onset: Today Context: Gradual Onset Timing: Continuous Quality: swelling Location: left neck Current Severity: Mild Maximum Severity: Mild Worsened by: nothing Relieved by: nothing Associated Symptoms Associated Symptoms: none Narrative Narrative: 72-year-old female noticed painless swelling in her left anterior neck today. No trouble swallowing or eating. No intraoral pain or dental infection. She is chronically congested during the spring due to allergies, she has no cough, fevers or chills, ear symptoms. She does not have a history of cancer. [facility] Medical History (Updated 02/09/23 @ 17:[address] Chris Velazquez MD) Hyperlipidemia Hypertension Home Medications lisinopril 10 mg tablet 20 mg PO DAILY BP 09/11/14 [History Last Taken 01/18/20 06:00] pravastatin 20 mg tablet 20 mg PO QHS cholesterol 09/11/14 [History Last Taken 12/28/15] amlodipine 2.5 mg tablet 2.5 mg PO DAILY 02/09/23 [History Last Taken Unknown] dicloxacillin 500 mg capsule 500 mg PO Q6H 10 days #40 caps 02/09/23 [Rx Last Taken Unknown] Allergy/AdvReac Type Severity Reaction Status Date / Time tramadol Allergy Other Verified 01/18/20 15:44 Social History Smoking Status: Light Smoker (<10/day) ROS ROS ED Constitutional Constitutional ED: Denies chills or fever(s) ENT ENT ED: Reports as per HPI and nasal congestion; Denies ear pain, rhinorrhea or sore throat Respiratory/Chest Respiratory/Chest: Denies cough or dyspnea Musculoskeletal Musculoskeletal: Reports other Details: Left neck swelling see HPI Integumentary Denies abscess or rash Neurologic Neurologic: Denies headache(s), paresthesias or weakness EXAM Physical Exam Const Vital Signs: 02/09/23 15:25 02/09/23 15:44 Temperature 97.5 F L Temperature Source Temporal Pulse Rate 107 H Respiratory Rate 18 Respiratory Effort Normal Non-Labored Blood Pressure 182/98 H Blood Pressure Mean 126 Pulse Ox 97 Oxygen Delivery Method Room Air Positive well nourished and well developed General Appearance ED: well developed and NAD HEENT HEENT Narrative: I had patient remove her partial. Intraoral exam is normal, including dentition, gingiva, submandibular area, tongue, posterior oropharynx. No trismus. No areas of tenderness. No areas of inflammation including the salivary ducts beneath the tongue. There is mild palpable swelling left submandibular without overlying erythema/rash/cellulitis. It is nontender. The swollen area is soft and mobile and does not feel hard. Eyes PERRL and EOMs intact bilaterally Neck supple Neck Narrative: See above. Supple full range of motion. Chest Wall inspection of chest normal Resp normal respiratory effort Neuro oriented x3, CN's II-XII intact bilaterally and no sensory deficits noted Motor Exam: strength 5/5 throughout MDM MDM MDM Narrative Medical decision making narrative: My suspicion is that this is a swollen left submandibular gland given its location. I advised the patient that since there is no evidence of sialoadenitis, I would recommend a sialagogue. She may try this empirically or undergo CT scanning to confirm, she opted for CT scanning which I think is reasonable. This was performed without contrast. I reviewed the images. My interpretation of the CT agrees with that of the radiologist. It appears show evidence of left submandibular sialoadenitis, but there is no sialolith in the duct. Therefore, although sialagogues are still reasonable, I will prescribe her dicloxacillin and advise ENT follow-up if not improving. She is comfortable with that plan we discussed reasons to return. Radiography Diagnostic Testing: Clinical Impression(s) from Imaging Studies Soft Tissue Neck CT 02/09/23 16:14 IMPRESSION: Left submandibular sialoadenitis with surrounding inflammatory stranding. No drainable fluid collection. Electronically Signed: Woodrow Arroyo MD at 16:55 EDT , Discharge Plan Triage Chief Complaint: Other, Pain/Inj ED Provider: Chris Velazquez Dx/Rx/DC Orders Clinical Impression: Submandibular sialoadenitis Instructions: ED Salivary Gland Infection Prescriptions: New dicloxacillin 500 mg capsule 500 mg PO Q6H 10 Days Qty: 40 0RF No Action lisinopril 10 MG tablet 20 mg PO DAILY pravastatin 20 MG tablet 20 mg PO QHS amlodipine 2.5 mg tablet 2.5 mg PO DAILY Label Comments: Take 1 tablet by mouth daily at bedtime. Primary Care Provider: Cal Will Referrals: Shaquille Baldwin MD [Med Staff - Active Staff] - 3-5 Days if not improving Cal Will MD [Primary Care Provider] - Disposition Disposition: Home, Self Care
== END 2023-02-09 17:31 | disposition home or self-care (01) ==
PROVIDERS: Emergency Provider Emergency Medicine; PCP Family Medicine; Visit Provider Emergency Medicine
DX: K11.20 Sialoadenitis, unspecified (principal); F17.200 Nicotine dependence, unspecified, uncomplicated; E78.5 Hyperlipidemia, unspecified; I10 Essential (primary) hypertension; Z79.899 Other long term (current) drug therapy
CPT/HCPCS: 70490; 99283

== ENCOUNTER → 2023-04-25 | Outpatient (CLI) | payer MEDICARE, MEDICAID, SELFPAY ==
--- NOTE | 2023-04-25 12:13 | US_ITS ---
INDICATION: UTI EXAMINATION: Ultrasound US Kidney(s) complete (eg, kidneys and bladder) TECHNIQUE: Swenson scale and color doppler images were obtained of the kidneys. COMPARISON: FINDINGS: RIGHT KIDNEY: 11.2 x 5.2 x 4.4 cm. The cortex is 15 mm. There is no hydronephrosis. No shadowing calculus, focal lesion or perinephric collection is demonstrated. LEFT KIDNEY: 13.1 x 5.7 x 4.6 cm. The cortex is 13 mm. There is no hydronephrosis. No shadowing calculus or perinephric collection is demonstrated. There are cysts noted ranging from 2.2 to 9 cm. The largest one containing septation and debris. URINARY BLADDER: It has a volume of 279 cc. US/Kidney and Bladder IMPRESSION: Left renal cystic lesions as noted. Electronically Signed: Ezra Mcdonald DO at 20:20 EDT ,
== END | disposition home or self-care (01) ==
PROVIDERS: PCP Family Medicine; Referring Provider Urology; Visit Provider Urology
DX: N39.0 Urinary tract infection, site not specified (principal)
CPT/HCPCS: 76770

== ENCOUNTER 2023-05-17 05:46 | Day surgery (SDC) | payer MEDICARE, MEDICAID, SELFPAY ==
[2023-05-17] MEDS: Lactated Ringers 1,000 ML 15 ML IV (06:17)
[2023-05-17 06:18] VITALS: BP 146/77; PULSE 98; RESP 18; TEMP 36.4; O2SAT 99; BMI 23.2
[2023-05-17] MEDS: Cefazolin 2 GM in 0.9% Normal Saline 100 ML IV (07:43)
[2023-05-17 08:11] VITALS: BP 135/72; BP 146/77; PULSE 80; RESP 18; TEMP 36.4; O2SAT 99
[2023-05-17 08:15] VITALS: BP 130/78; BP 146/77; PULSE 70; RESP 18; O2SAT 99
[2023-05-17 08:19] VITALS: BP 146/77; BP 153/77; PULSE 72; RESP 18; O2SAT 97
[2023-05-17 08:24] VITALS: BP 146/77; BP 157/81; PULSE 68; RESP 18; TEMP 36.6; O2SAT 99
--- NOTE | 2023-05-17 08:28 | DCINST_ITS ---
Discharge Instructions Diet Discharge Diet: No restrictions Activity Discharge Activity: Return to Normal Activity Dressing / Incision Call your doctor if you observe: Fever of 101 or Higher, Inability to urinate and Inability to have a bowel movement Follow Up Care Please Follow Up With: Leigh Escobar MD When: The office will call the patient for instructions. Test Results: Test results from this visit will be discussed in further detail at your follow- up appointment, if applicable. Discharge Plan Admission Attending Provider: Leigh Escobar Primary Care Provider: Cal Will Discharge Orders/Prescriptions Prescriptions: New cephalexin [cephalexin] 500 mg capsule 500 mg PO Q12 3 Days Qty: 6 0RF Continued lisinopril 10 MG tablet 20 mg PO DAILY pravastatin 20 MG tablet 20 mg PO QHS amlodipine 2.5 mg tablet 2.5 mg PO DAILY Patient Comments: Take 1 tablet by mouth daily at bedtime. Referrals / Follow Up: Cal Will MD [Primary Care Provider] - Disposition Disposition (needs filled in before D/C Order can be placed): Home, Self Care
--- NOTE | 2023-05-17 08:29 | OP.PCM_ITS ---
Report of Operation Date of Procedure: 05/17/23 Pre-Operative Diagnosis: urinary tract infections, urethral stenosis Post-Operative Diagnosis: same Surgery/Procedure Performed:: urethral dilation, cystoscopy Surgeon: Leigh Escobar Type of Anesthesia: MAC Specimen's removed: None Description of Procedure: The patient is a 73-year-old female with recurrent urinary tract infections and on attempted cystoscopy in the office was identified as having a urethral stricture. She now presents for urethral dilation and cystoscopy under anesthesia. Informed consent was obtained. The patient was taken the operating room and placed on the operating room table. Anesthesia monitored the head, neck, airway, IV access and vital signs throughout the case. Once anesthesia wa s appropriately ministered, the patient was placed into dorsolithotomy position was prepped and draped in usual sterile fashion. The urethra was then systematically dilated from 12 Bangladeshi to 30 Bangladeshi with cracking of the mucosa. The cystoscope was easily inserted through the urethra into the urinary bladder under direct visualization. The bladder mucosa was visualized in its entirety without evidence of mass, erythema, ulceration or foreign body. Bilateral ureteral orifices were located in the correct anatomic position. The patient's bladder was then emptied and the cystoscope was removed. She was awakened and taken to the recovery room in good condition. There were no complications during this procedure. Grafts/Implants Used: None Complications none Admit VTE Documentation VTE Present on Admission: Yes VTE Mechan Device Prophylaxis: SCD's VTE Pharm Prophylaxis ordered?: No Reason prophylaxis not ordered:: Treatment Not Indicated
[2023-05-17 08:42] VITALS: BP 146/77
== END 2023-05-17 08:45 | disposition home or self-care (01) ==
LOC: SDC 05:47 → AC 05:48
PROVIDERS: PCP Family Medicine; Referring Provider Urology; Visit Provider Urology
PROC: (CPT 52281; principal; 2023-05-17 07:20)
DX: N35.92 Unspecified urethral stricture, female (principal); I10 Essential (primary) hypertension; F17.210 Nicotine dependence, cigarettes, uncomplicated; E78.00 Pure hypercholesterolemia, unspecified; N95.2 Postmenopausal atrophic vaginitis; N28.1 Cyst of kidney, acquired; R10.30 Lower abdominal pain, unspecified; N39.0 Urinary tract infection, site not specified
CPT/HCPCS: 52281; 00910; J7120; J2405

== ENCOUNTER → 2023-05-25 | Outpatient (CLI) | payer MEDICARE, MEDICAID, SELFPAY ==
--- NOTE | 2023-05-25 14:05 | US_ITS ---
HISTORY: UTI ABD PAIN. TECHNIQUE: Transabdominal and transvaginal pelvic ultrasound was performed with joseph scale and color Doppler evaluation. 86 images. COMPARISON: None. FINDINGS: UTERUS: 3.5 x 1.6 x 3 cm. Anteverted, heterogeneous echotexture. ENDOMETRIAL THICKNESS: 2 mm, with mild fluid in the endometrial cavity. RIGHT OVARY: 7 x 12 x 15 mm. No adnexal masses LEFT OVARY: 18 x 18 x 26 mm. 1.3 cm cyst, 7 mm echogenic nodule, and 7 mm calcified cyst noted. FREE FLUID: None. US/Pelvic w/ Transvaginal IMPRESSION: Heterogeneous uterus without focal lesion demonstrated. Mild fluid in the endometrial cavity without endometrial thickening. Small left ovarian cysts. Subcentimeter echogenic nodule in the left ovary, nonspecific. Recommend follow-up. Electronically Signed: Deana Blas MD at 9:39 EDT ,
== END | disposition home or self-care (01) ==
LOC: US 14:04
PROVIDERS: PCP Family Medicine; Referring Provider Urology; Visit Provider Urology
DX: R10.9 Unspecified abdominal pain (principal); N39.0 Urinary tract infection, site not specified
CPT/HCPCS: 76830; 76856

== ENCOUNTER → 2023-06-05 | Outpatient (CLI) | payer MEDICARE, MEDICAID, SELFPAY ==
--- NOTE | 2023-06-05 | EMB_PTH ---
PATIENT: KORIN WARD [facility] U#:[id number] AGE/SX: 73/F ROOM: RE06/05/[address]: OSCAR Mead : 1950 BED: DIS: 06/05/2023 SPEC #: [id number] RECD: 06/05/23 12:18 STATUS: LUIS ALBERTO DESOUZA #: [id number] [place]: 06/05/23 00:[address]: Kasia Gunderson NP DEPT: SURGICAL PATHOLOGY RECD BY: Chely Barker ENTERED: 06/05/23 12:18 SP TYPE: ENDOM BX/C GINA DR: Dr. Cal Will MD Tissues: Endometrium, NOS Procedures: Surgery Specimen Level IV HEADER OPERATION: Endometrial biopsy PRE-OP DIAGNOSIS: Endometrial fluid in canal TISSUE SUBMITTED: Endometrial tissue MICROSCOPIC DIAGNOSIS Endometrial biopsy: Strips of benign endometrial epithelium, consistent with atrophied endometrium. A few fragments of mixed benign endocervical and endometrial polyp. Fragments of benign squamous epithelium and mucous. SUDHEER:mayito 06/06/2023 MICROSCOPIC DESCRIPTION Slides are reviewed. GROSS DESCRIPTION Received is one container labeled with the patient's name and not further designated. The specimen consists of multiple irregular fragments of pink soft tissue mixed with mucoid tissue that in aggregate measure 2.5 x 0.5 x 0.1 cm. The specimen is totally submitted in one cassette. / SUDHEER:mayito 06/05/2023 TC:5 [facility]: [id number]
== END | disposition home or self-care (01) ==
PROVIDERS: PCP Family Medicine; Referring Provider Nurse Practitioner Women's Health; Visit Provider Nurse Practitioner Women's Health
DX: N85.8 Other specified noninflammatory disorders of uterus (principal)
CPT/HCPCS: 88305

== ENCOUNTER → 2023-06-19 | Outpatient (CLI) | payer MEDICARE, MEDICAID, SELFPAY ==
--- NOTE | 2023-06-19 13:54 | CT_ITS ---
STUDY: CT PELVIS WITH / WITHOUT CONTRAST REASON FOR EXAM: Female, 73 years old. LEFT ABDOMINAL PAIN. Left groin pain. RADIATION DOSAGE (If Supplied By Facility): CTDIvol = ( 27.46 ) mGy, DLP = ( 1941.66 ) mGycm TECHNIQUE: Transaxial imaging of the pelvis was performed without oral contrast. IV 100mL Isovue-300 was administered intravenously. Individualized dose optimization techniques were used for this CT. COMPARISON: None. FINDINGS: Normal urinary bladder. There is a 6 on nearby 6.2 cm cyst in the midportion of the left kidney with minimal peripheral calcification. Smaller cysts are also seen within the kidney. Normal visualized small intestine. There are scattered colonic diverticula of the sigmoid colon consistent with chronic diverticulosis. There is no pelvic fluid. There is no pelvic lymphadenopathy or mass lesion. There is diffuse atherosclerotic calcification of the pelvic arteries. Small umbilical hernia containing fat. There are degenerative changes of the visualized lumbar spine. CT/Pelvis W/WO IV Contrast IMPRESSION: Left renal cysts as described. Electronically Signed: Nader Rocha MD at 15:33 EDT ,
== END | disposition home or self-care (01) ==
LOC: CT 13:48
PROVIDERS: PCP Family Medicine; Referring Provider Urology; Visit Provider Urology
DX: R10.30 Lower abdominal pain, unspecified (principal)
CPT/HCPCS: 72194; Q9967

== ENCOUNTER → 2023-08-09 | Outpatient (CLI) | payer MEDICARE, MEDICAID, SELFPAY ==
[2023-08-09 12:23] LABS: Basophil# 0.11 X10^3/uL; Basophil% 1.4 % (0-1); Eosinophils% 2.6 % (0-5); Hematocrit 42.5 % (37-47); Hemoglobin 13.6 g/dL (12.0-15.0); Lymphocyte % 24.9 % (19-41); Mean Corpuscular Hgb 30.4 pg (27.0-32.0); Mean Corpuscular Volume 95.1 fL (81-99); Mean Platelet Vol. 9.3 fl (6.2-12.0); Monocyte# 0.44 X10^3/uL; Monocyte% 5.8 % (0-10); NRBC Flagged by Analyzer 0 % (0-5); Neutrophil # 4.95 X10^3/uL (2.7-7.7); Platelet Count 408 K/mm3 (150-450); RBC Distribution Width CV 13.6 % (11.6-14.6); RBC Distribution Width SD 47.4 fl (35.1-43.9); Red Blood Count 4.47 M/mm3 (4.2-5.4); White Blood Count 7.6 K/mm3 (4.4-11.0)
[2023-08-09 12:32] LABS: Vitamin B12 456 pg/mL (211-911); Vitamin D,25 Hydroxy 32.4 ng/mL
[2023-08-09 13:02] LABS: Hemoglobin A1c 5.5 % (3.8-5.6)
[2023-08-09 13:18] LABS: ALB/GLOB Ratio 0.9 RATIO (0.9-2.4); AST(SGOT) 13 U/L (15-37); Alanine Aminotransfer ALT/SGPT 20 U/L (13-56); Albumin, Serum 3.7 g/dL (3.2-5.0); Alkaline Phosphatase 89 U/L (45-117); Anion Gap 6 (5-15); BUN 19 mg/dL (7-18); BUN/Creat Ratio 22.9 RATIO (10-20); Calcium,Total 9.3 mg/dL (8.5-10.1); Chloride 104 mmol/L (98-107); Creatinine, Serum 0.83 mg/dL (0.55-1.02); EST Glomerular Filtration Rate 72 mL/min (>60); Est Glom Filt Rate - Afr Amer 87 mL/min (>60); Ferritin 35 ng/mL (8-252); Free T3 2.6 pg/mL (2.18-3.98); Glucose 87 mg/dL (74-106); Iron 87 ug/dL (50-170); Iron Binding Capacity,Total 391 ug/dL (250-450); PERCENT IRON SATURATION 22.3 % (15.0-55.0); Potassium 4.1 mmol/L (3.5-5.1); Protein, Total 7.7 g/dL (6.4-8.2); Sodium Level 135 mmol/L (136-145); T4 Free Direct 1.07 ng/dL (0.76-1.46); T4 Total, Thyroxin 10.1 ug/dL (4.8-13.9); Thyroid Stim Hormone (TSH) 2.35 uIU/mL (0.358-3.74)
[2023-08-10 04:07] LABS: Cancer Antigen 125 13.9 U/mL (0.0-38.1); Carcinoembryonic Antigen 3.9 ng/mL (0.0-4.7)
== END | disposition home or self-care (01) ==
LOC: MTLAB 09:21
PROVIDERS: Obstetrics & Gynecology; PCP Family Medicine; Referring Provider Student in an Organized Health Care Education/Training Program; Visit Provider Student in an Organized Health Care Education/Training Program
DX: M79.671 Pain in right foot (principal); M79.672 Pain in left foot
CPT/HCPCS: 36415; 80053; 82306; 82378; 82607; 82728; 82746; 83036; 83540; 83550; 84436; 84439; 84443; 84481; 85025; 86304

== ENCOUNTER → 2023-08-20 | Outpatient (CLI) | payer MEDICARE, MEDICAID, SELFPAY ==
--- NOTE | 2023-08-20 09:27 | VDLE_ITS ---
Reason For Study: CVI RIGHT LEFT CFV is compressible, spontaneous, phasic, GSV is normal. competent and demonstrates normal CFV is compressible, spontaneous, phasic, augmentation. competent, and demonstrates normal FV is compressible, spontaneous, phasic, augmentation. competent and demonstrates normal FV is compressible, spontaneous, phasic, augmentation. competent and demonstrates normal POP V is compressible, phasic, and augmentation. INCOMPETENT for greater than 1.0 second. POP V is compressible, spontaneous, phasic, T/P Trunk is compressible. competent and demonstrates normal PTV is compressible. augmentation. RT PerV is compressible. T/P Trunk is compressible. SFJ is competent and measures 0.42cm x 0.44 PTV is compressible. cm. LT PerV is compressible. GSV proximal thigh measures 0.30cm x0.30 SFJ is competent and measures 0.32cm x 0.34 cm. cm. GSV at knee measures 0.19cm x 0.19 cm. GSV proximal thigh measures 0.17cm x 0.18 cm. GSV INCOMPETENT throughout for greater than GSV at knee measures 0.12cm x 0.14 cm. 0.5 seconds. GSV is competent throughout. SSV proximal calf is competent and measures Unable to visualize/interrogate LT GSV 0.10cm x 0.12 cm. mid/distal calf due to small size. Procedure SSV proximal calf is competent and measures This is a venous duplex using B-mode, color 0.28cm x 0.29 cm. flow and spectral Doppler. Exam performed in department. VL/Venous Duplex US - Satnam Extrem Interpretation Summary Deep veins of the bilateral lower extremities are patent and compressible segme ntally. There is no evidence of bilateral lower extremity deep vein thrombosis. The bilateral great saphenous veins appear patent and compressible segmentally. Positive for reflux in the right popliteal vein, great saphenous vein throughou t Ordering Physician: Jorge Luis Enrique Referring Physician: Cal Will Performed By: Aubree Ndiaye, PE[place], RVT
--- NOTE | 2023-08-20 09:27 | ART_ITS ---
Reason For Study: Foot Pain Procedure A bilateral lower extremity continuous wave Doppler with analog waveform analysis,segmental pressures,and ankle brachial indexes without exercise. Left Segmental Pressures Left brachial= 168mmHg. Left posterior tibial artery = 198mmHg. Left dorsalis pedis artery = 200mmHg. Left digit = 112 mmHg. Right Segmental Pressures Right brachial= 162mmHg. Right posterior tibial artery = 203mmHg. Right dorsalis pedis artery = 200mmHg. Right digit = 115 mmHg. Indices The right ankle brachial index by the posterior tibial artery is 1.21. The right ankle brachial index by the dorsalis pedis is 1.19. The right digital-brachial index is 0.68. The left ankle brachial index by the posterior tibial artery is 1.18. The left ankle brachial index by the dorsalis pedis is 1.19. The left digital-brachial index is 0.67. VL/Lower Ext Art Exam w/o Exercis Interpretation Summary Right ERNESTO 1.21, normal. Doppler/PVR waveforms of the right leg normal at rest. TBI diminished, pedal/digit disease vs spasm Left ERNESTO 1.19, normal. Doppler/PVR waveforms of the left leg normal at rest. TB I diminished, pedal/digit disease vs spasm Ordering Physician: Jorge Luis Enrique Referring Physician: Cal Will Performed By: Aubree Ndiaye RDCS/RVT
== END | disposition home or self-care (01) ==
PROVIDERS: PCP Family Medicine; Referring Provider Student in an Organized Health Care Education/Training Program; Visit Provider Student in an Organized Health Care Education/Training Program
DX: M79.671 Pain in right foot (principal); I73.9 Peripheral vascular disease, unspecified; M79.672 Pain in left foot; I87.2 Venous insufficiency (chronic) (peripheral)
CPT/HCPCS: 93923; 93970